=== PATIENT | female | born 1965 | race Caucasian/White ===

== ENCOUNTER 2021-09-18 19:33 | Inpatient (IN) ==
[2021-09-18] MEDS ORDERED: Isovue-370 500 ML BOTTLE IVP ONE (23:35)
[2021-09-19 00:10] LABS: Basophils % 0.4 %; Eosinophils % 0.1 %; Hematocrit 41.4 % (35.3-44.9); Hemoglobin 12.5 g/dL (11.5-15.4); Immature Granulocytes % 0.9 % (0-4); Lymphocytes # 1.4 K/mcL (0.6-4.6); Lymphocytes % 21.1 %; Mean Corpuscular HGB Conc 30.2 g/dL (31.6-35.5); Mean Corpuscular Hemoglobin 28.4 pg (28.0-33.3); Mean Corpuscular Volume 94.1 fL (83.0-100.0); Mean Platelet Volume 9.6 fL (9.4-12.4); Monocytes # 0.3 K/mcL (0.0-1.3); Monocytes % 4.6 %; Neutrophils # 4.9 K/mcL (1.6-8.9); Platelet Count 231 K/mcL (140-400); Red Cell Distribution Width 14.5 % (11.5-14.5); Segmented Neutrophils % 72.9 %; White Blood Count 6.7 K/mcL (4.3-11.1)
[2021-09-19 00:19] LABS: INR 1.1; Prothrombin Time 12.1 Seconds (9.4-12.1)
[2021-09-19 00:21] LABS: Activated Partial Thrombo Time 30.6 Seconds (26.0-36.0)
[2021-09-19 00:33] LABS: Alanine Aminotransferase 18 Units/L (7-52); Albumin 3.9 g/dL (3.5-5.7); Albumin/Globulin Ratio 1.1 (1.1-2.2); Alkaline Phosphatase 61 Units/L (34-104); Aspartate Amino Transferase 30 Units/L (13-39); BUN/Creatinine Ratio 22 (6-26); Bilirubin,Indirect 0.3 mg/dL (0.0-1.0); Bilirubin,Total 0.3 mg/dL (0.3-1.0); Blood Urea Nitrogen 16 mg/dL (6-20); Calcium 9.2 mg/dL (8.6-10.3); Carbon Dioxide 28 mEq/L (23-29); Chloride 97 mEq/L (98-107); Globulin 3.5 g/dL (2.4-3.5); Glucose 187 mg/dL (70-105); Osmolality,Calculated 288 (280-300); Potassium 3.8 mEq/L (3.5-5.1); Sodium 136 mEq/L (136-145); Total Protein 7.4 g/dL (6.4-8.9); eGFR For African Americans > 60 (> 60); eGFR For Non-African Americans > 60 (> 60)
[2021-09-19 01:55] LABS: Troponin I < 0.03 ng/mL (< 0.04)
[2021-09-19] MEDS ORDERED: Naloxone 0.4 MG/ML INJ IVP PRN (02:58)
[2021-09-19] MEDS ORDERED: Acetaminophen 325 MG TABLET PO PRN (02:58)
[2021-09-19] MEDS ORDERED: Melatonin 3 MG TABLET PO PRN (02:58)
[2021-09-19] MEDS ORDERED: Ondansetron 4 MG/2 ML VIAL IVP PRN (02:58)
[2021-09-19] MEDS ORDERED: Benzonatate 100 MG CAPSULE PO PRN (03:04)
[2021-09-19] MEDS ORDERED: GuaiFENesin Liq 200 MG/10 ML UDC PO PRN (03:04)
[2021-09-19] MEDS ORDERED: *HR* Dextrose 50 % in Water (Syg) 50 ML SYRINGE IVP PRN (03:11)
[2021-09-19] MEDS ORDERED: Dextrose Gel 15 GM/37.5 ML TUBE PO PRN ×2 (03:11)
[2021-09-19] MEDS ORDERED: D5% in Water 1,000 ML IVC PRN (03:11)
[2021-09-19 03:21] LABS: Influenza A PCR Negative (Negative); Influenza B PCR Negative (Negative); Resp. Syncytial Virus PCR Negative (Negative)
[2021-09-19 03:33] LABS: SARS-CoV-2 by PCR (In House) Positive (Negative)
[2021-09-19 04:55] LABS: VBG HCO3 31 mEq/L (21-27); VBG PCO2 47 mmHg (41-51); VBG PH 7.43 pH Units (7.32-7.42); VBG PO2 188 mmHg (25-50)
[2021-09-19 04:58] LABS: C-Reactive Protein 189 mg/L (Less than 10)
[2021-09-19 05:17] LABS: Ferritin 234 ng/mL (10-120)
[2021-09-19 06:27] LABS: ABG Base Excess 6 mEq/L (-2 to 3); ABG HCO3 32 mEq/L (21-27); ABG Oxygen Saturation 88 % (95-98); ABG PCO2 51 mmHg (35-45); ABG PH 7.41 pH Units (7.32-7.45); ABG PO2 56 mmHg (85-104); ABG TCO2 34 mEq/L (20-26); Blood Gas Modality 4LPM
[2021-09-19] MEDS ORDERED: Remdesivir 200 MG in 0.9 % Sodium Chloride 100 ML IVPB ONE (06:30)
[2021-09-19] MEDS: *HR* Heparin 5,000 UNIT/ML VIAL SQ SCH ×2 (06:35→13:48)
[2021-09-19] MEDS: ALPRAZolam 1 MG TABLET PO PRN (06:37)
[2021-09-19] MEDS ORDERED: Ipratropium 1 PUFF INHALER IH ONE (07:58)
[2021-09-19] MEDS: lamoTRIgine 100 MG TABLET PO SCH ×2 (08:22→20:23)
[2021-09-19] MEDS: Gabapentin 400 MG CAPSULE PO SCH ×2 (08:22→20:24)
[2021-09-19] MEDS: lisinopriL 5 MG TABLET PO SCH (08:22)
[2021-09-19] MEDS: Insulin LISPRO 300 UNITS/3 ML VIAL SUBQ SCH ×4 (08:25→20:22)
[2021-09-19] MEDS ORDERED: dexAMETHasone 4 MG TABLET PO SCH (09:00)
[2021-09-19] MEDS: Ipratropium 1 PUFF INHALER IH SCH ×3 (10:47→22:02)
[2021-09-19] MEDS: Furosemide 20 MG/2 ML VIAL IVP SCH (12:12)
[2021-09-19] MEDS ORDERED: NON-FORMULARY MEDICATION 1 EACH EACH (Pravastatin Sodium 10 MG Tablet) PO SCH (18:00)
[2021-09-19] MEDS: *HR* Enoxaparin 40 MG/0.4 ML SYRINGE SQ SCH (20:23)
[2021-09-19] MEDS: Melatonin 3 MG TABLET PO SCH (20:23)
[2021-09-19] MEDS: risperiDONE 1 MG TABLET PO SCH (20:24)
[2021-09-19] MEDS ORDERED: Insulin DETEMIR 100 UNIT/ML X5UNITS SUBQ SCH (21:00)
[2021-09-20] MEDS: Multivit/Ca/Min/Fe/FA 1 TAB TABLET PO SCH ×2 (01:37→08:04)
[2021-09-20] MEDS ORDERED: Ketorolac 30 MG/ML VIAL IM PRN (02:28)
[2021-09-20 02:48] LABS: Hematocrit 38.4 % (35.3-44.9); Hemoglobin 11.7 g/dL (11.5-15.4); Mean Corpuscular HGB Conc 30.5 g/dL (31.6-35.5); Mean Corpuscular Hemoglobin 28.6 pg (28.0-33.3); Mean Corpuscular Volume 93.9 fL (83.0-100.0); Mean Platelet Volume 9.5 fL (9.4-12.4); Platelet Count 262 K/mcL (140-400); Red Blood Count 4.09 M/mcL (3.82-4.97); Red Cell Distribution Width 14.4 % (11.5-14.5); White Blood Count 8.4 K/mcL (4.3-11.1)
[2021-09-20 03:04] LABS: Albumin 3.7 g/dL (3.5-5.7); Albumin/Globulin Ratio 1.1 (1.1-2.2); Bilirubin,Direct 0.1 mg/dL (0.0-0.2); Bilirubin,Indirect 0.2 mg/dL (0.0-1.0); Bilirubin,Total 0.3 mg/dL (0.3-1.0); Globulin 3.4 g/dL (2.4-3.5); Total Protein 7.1 g/dL (6.4-8.9)
[2021-09-20 03:06] LABS: BUN/Creatinine Ratio 31 (6-26); Blood Urea Nitrogen 18 mg/dL (6-20); Calcium 8.9 mg/dL (8.6-10.3); Carbon Dioxide 32 mEq/L (23-29); Chloride 97 mEq/L (98-107); Glucose 242 mg/dL (70-105); Lactate Dehydrogenase 242 Units/L (140-271); Osmolality,Calculated 288 (280-300); Potassium 3.8 mEq/L (3.5-5.1); Sodium 134 mEq/L (136-145); eGFR For African Americans > 60 (> 60); eGFR For Non-African Americans > 60 (> 60)
[2021-09-20 03:25] LABS: Ferritin 298 ng/mL (10-120)
[2021-09-20] MEDS: Ipratropium 1 PUFF INHALER IH SCH ×4 (04:23→20:35)
[2021-09-20] MEDS: Remdesivir 100 MG in 0.9 % Sodium Chloride 100 ML IVPB SCH (05:34)
[2021-09-20] MEDS: Cyanocobalamin (B-12) 1,000 MCG TABLET PO SCH (08:03)
[2021-09-20] MEDS: Cholecalciferol (D-3) 1,000 UNIT (25MCG) TABLET PO SCH (08:03)
[2021-09-20] MEDS: Gabapentin 400 MG CAPSULE PO SCH ×2 (08:03→20:34)
[2021-09-20] MEDS: Insulin LISPRO 300 UNITS/3 ML VIAL SUBQ SCH ×6 (08:03→20:36)
[2021-09-20] MEDS: Aspirin Enteric Coated 81 MG Tablet PO SCH (08:03)
[2021-09-20] MEDS: lamoTRIgine 100 MG TABLET PO SCH ×2 (08:03→20:34)
[2021-09-20] MEDS: Furosemide 20 MG/2 ML VIAL IVP SCH (08:04)
[2021-09-20] MEDS: lisinopriL 5 MG TABLET PO SCH (08:04)
[2021-09-20] MEDS: *HR* Enoxaparin 40 MG/0.4 ML SYRINGE SQ SCH ×2 (08:04→20:36)
[2021-09-20 17:27] LABS: Bacteria,Urine Moderate per hpf (None-Few); Bilirubin,Urine Negative (Negative); Blood,Urine Large (Negative); Clarity,Urine Turbid (Clear); Color,Urine Yellow (Yellow); Glucose,Urine (UA) >=1000 mg/dL (Normal); Ketones,Urine Negative (Negative); Leukocyte Esterase,Urine Moderate (Negative); Mucus,Urine Few per lpf (None-Few); Nitrite,Urine Positive (Negative); PH,Urine 6.5 pH Units (5.0-8.0); Protein,Urine 50 mg/dL (Neg-Trace); RBC,Urine TNTC per hpf (0-3); Specific Gravity,Urine 1.029 (1.010-1.025); Squamous Epithelial Cell,Urine Few per hpf (None-Few); Urobilinogen,Urine Normal (Normal); WBC,Urine 50-100 per hpf (0-3)
[2021-09-20] MEDS: ALPRAZolam 1 MG TABLET PO PRN (20:34)
[2021-09-20] MEDS: risperiDONE 1 MG TABLET PO SCH (20:34)
[2021-09-20] MEDS: Melatonin 3 MG TABLET PO SCH (20:36)
[2021-09-20] MEDS ORDERED: Insulin DETEMIR 100 UNIT/ML X5UNITS SUBQ SCH (21:00)
[2021-09-21] MEDS ORDERED: Ketorolac 30 MG/ML VIAL IVP ONE (00:15)
[2021-09-21 03:56] LABS: Hematocrit 37.1 % (35.3-44.9); Hemoglobin 11.2 g/dL (11.5-15.4); Mean Corpuscular HGB Conc 30.2 g/dL (31.6-35.5); Mean Corpuscular Hemoglobin 28.4 pg (28.0-33.3); Mean Corpuscular Volume 94.2 fL (83.0-100.0); Mean Platelet Volume 9.7 fL (9.4-12.4); Platelet Count 292 K/mcL (140-400); Red Blood Count 3.94 M/mcL (3.82-4.97); Red Cell Distribution Width 14.3 % (11.5-14.5); White Blood Count 8.8 K/mcL (4.3-11.1)
[2021-09-21 04:16] LABS: BUN/Creatinine Ratio 34 (6-26); Blood Urea Nitrogen 19 mg/dL (6-20); Calcium 8.8 mg/dL (8.6-10.3); Carbon Dioxide 34 mEq/L (23-29); Chloride 96 mEq/L (98-107); Glucose 240 mg/dL (70-105); Osmolality,Calculated 290 (280-300); Potassium 3.8 mEq/L (3.5-5.1); Sodium 135 mEq/L (136-145); eGFR For African Americans > 60 (> 60); eGFR For Non-African Americans > 60 (> 60)
[2021-09-21 04:18] LABS: Albumin 3.5 g/dL (3.5-5.7); Albumin/Globulin Ratio 1.1 (1.1-2.2); Bilirubin,Direct 0.1 mg/dL (0.0-0.2); Bilirubin,Indirect 0.2 mg/dL (0.0-1.0); Bilirubin,Total 0.3 mg/dL (0.3-1.0); Globulin 3.3 g/dL (2.4-3.5); Total Protein 6.8 g/dL (6.4-8.9)
[2021-09-21] MEDS: Ipratropium 1 PUFF INHALER IH SCH ×4 (04:24→20:04)
[2021-09-21] MEDS: Remdesivir 100 MG in 0.9 % Sodium Chloride 100 ML IVPB SCH (05:08)
[2021-09-21] MEDS: Insulin LISPRO 300 UNITS/3 ML VIAL SUBQ SCH ×7 (09:03→19:26)
[2021-09-21] MEDS: *HR* Enoxaparin 40 MG/0.4 ML SYRINGE SQ SCH ×2 (09:03→19:25)
[2021-09-21] MEDS: Furosemide 20 MG/2 ML VIAL IVP SCH (09:04)
[2021-09-21] MEDS: lamoTRIgine 100 MG TABLET PO SCH ×2 (09:04→19:26)
[2021-09-21] MEDS: lisinopriL 5 MG TABLET PO SCH (09:04)
[2021-09-21] MEDS: Gabapentin 400 MG CAPSULE PO SCH ×2 (09:04→19:25)
[2021-09-21] MEDS: Aspirin Enteric Coated 81 MG Tablet PO SCH (09:05)
[2021-09-21] MEDS: Cholecalciferol (D-3) 1,000 UNIT (25MCG) TABLET PO SCH (09:05)
[2021-09-21] MEDS: Cyanocobalamin (B-12) 1,000 MCG TABLET PO SCH (09:05)
[2021-09-21] MEDS: Multivit/Ca/Min/Fe/FA 1 TAB TABLET PO SCH (09:05)
[2021-09-21] MEDS: Melatonin 3 MG TABLET PO SCH (19:25)
[2021-09-21] MEDS: Insulin DETEMIR 100 UNIT/ML X5UNITS SUBQ SCH (19:38)
[2021-09-21] MEDS: risperiDONE 1 MG TABLET PO SCH (19:55)
[2021-09-21] MEDS: ALPRAZolam 1 MG TABLET PO PRN (20:00)
[2021-09-22] MEDS: Ipratropium 1 PUFF INHALER IH SCH ×4 (03:04→22:00)
[2021-09-22] MEDS: Remdesivir 100 MG in 0.9 % Sodium Chloride 100 ML IVPB SCH (05:24)
[2021-09-22] MEDS: Cholecalciferol (D-3) 1,000 UNIT (25MCG) TABLET PO SCH (08:03)
[2021-09-22] MEDS: Multivit/Ca/Min/Fe/FA 1 TAB TABLET PO SCH (08:03)
[2021-09-22] MEDS: Cyanocobalamin (B-12) 1,000 MCG TABLET PO SCH (08:03)
[2021-09-22] MEDS: Insulin LISPRO 300 UNITS/3 ML VIAL SUBQ SCH ×7 (08:04→20:58)
[2021-09-22] MEDS: lamoTRIgine 100 MG TABLET PO SCH ×2 (08:04→20:46)
[2021-09-22] MEDS: Gabapentin 400 MG CAPSULE PO SCH ×2 (08:04→20:45)
[2021-09-22] MEDS: lisinopriL 5 MG TABLET PO SCH (08:04)
[2021-09-22] MEDS: Aspirin Enteric Coated 81 MG Tablet PO SCH (08:04)
[2021-09-22] MEDS: *HR* Enoxaparin 40 MG/0.4 ML SYRINGE SQ SCH ×2 (08:04→20:48)
[2021-09-22] MEDS: Furosemide 20 MG/2 ML VIAL IVP SCH (08:05)
[2021-09-22 10:02] LABS: Bilirubin,Direct 0.1 mg/dL (0.0-0.2); Bilirubin,Indirect 0.3 mg/dL (0.0-1.0); Bilirubin,Total 0.4 mg/dL (0.3-1.0); Globulin 3.9 g/dL (2.4-3.5); Total Protein 7.9 g/dL (6.4-8.9)
[2021-09-22 10:04] LABS: BUN/Creatinine Ratio 30 (6-26); Blood Urea Nitrogen 18 mg/dL (6-20); C-Reactive Protein 39 mg/L (Less than 10); Calcium 9.4 mg/dL (8.6-10.3); Carbon Dioxide 34 mEq/L (23-29); Chloride 94 mEq/L (98-107); Glucose 192 mg/dL (70-105); Lactate Dehydrogenase 250 Units/L (140-271); Osmolality,Calculated 293 (280-300); Potassium 3.3 mEq/L (3.5-5.1); Sodium 138 mEq/L (136-145); eGFR For African Americans > 60 (> 60); eGFR For Non-African Americans > 60 (> 60)
[2021-09-22 10:22] LABS: Ferritin 222 ng/mL (10-120)
[2021-09-22] MEDS: risperiDONE 1 MG TABLET PO SCH (20:47)
[2021-09-22] MEDS: Melatonin 3 MG TABLET PO SCH (20:47)
[2021-09-22] MEDS: Insulin DETEMIR 100 UNIT/ML X5UNITS SUBQ SCH (20:48)
[2021-09-22] MEDS ORDERED: MOM Conc 10 ML UD.LIQ PO PRN (22:05)
[2021-09-22] MEDS: ALPRAZolam 1 MG TABLET PO PRN (22:31)
[2021-09-23] MEDS: Ipratropium 1 PUFF INHALER IH SCH ×3 (03:52→18:04)
[2021-09-23] MEDS: Remdesivir 100 MG in 0.9 % Sodium Chloride 100 ML IVPB SCH (05:36)
[2021-09-23 05:41] LABS: Albumin 3.5 g/dL (3.5-5.7); Albumin/Globulin Ratio 1.1 (1.1-2.2); Bilirubin,Direct 0.1 mg/dL (0.0-0.2); Bilirubin,Indirect 0.2 mg/dL (0.0-1.0); Bilirubin,Total 0.3 mg/dL (0.3-1.0); Globulin 3.2 g/dL (2.4-3.5); Total Protein 6.7 g/dL (6.4-8.9)
[2021-09-23 06:33] VITALS: BP 151/59; PULSE 78; TEMP 97.9; O2SAT 95
[2021-09-23] MEDS: lamoTRIgine 100 MG TABLET PO SCH (08:08)
[2021-09-23] MEDS: Multivit/Ca/Min/Fe/FA 1 TAB TABLET PO SCH (08:08)
[2021-09-23] MEDS: Gabapentin 400 MG CAPSULE PO SCH (08:08)
[2021-09-23] MEDS: Aspirin Enteric Coated 81 MG Tablet PO SCH (08:09)
[2021-09-23] MEDS: Cholecalciferol (D-3) 1,000 UNIT (25MCG) TABLET PO SCH (08:09)
[2021-09-23] MEDS: lisinopriL 5 MG TABLET PO SCH (08:09)
[2021-09-23] MEDS: ALPRAZolam 1 MG TABLET PO PRN (08:09)
[2021-09-23] MEDS: Cyanocobalamin (B-12) 1,000 MCG TABLET PO SCH (08:09)
[2021-09-23] MEDS: Furosemide 20 MG/2 ML VIAL IVP SCH (08:10)
[2021-09-23] MEDS: Insulin LISPRO 300 UNITS/3 ML VIAL SUBQ SCH ×4 (08:11→13:46)
[2021-09-23] MEDS: *HR* Enoxaparin 40 MG/0.4 ML SYRINGE SQ SCH (08:11)
== END 2021-09-23 18:02 | disposition home or self-care (01) | DRG 871 ==
LOC: 2NENU 19:33 → EMEROOARM 19:33 → SUATTDRO 09-19 02:37 → 2NENU 09-19 03:25 → SUATTDRO 09-19 11:32
PROVIDERS: ADMIT Internal Medicine; ATTEND Internal Medicine